=== PATIENT | male | born 2000 | race Caucasian/White ===

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

== ENCOUNTER → 2019-12-03 07:13 | Outpatient (CLI) | payer OTHER, SELFPAY ==
[2018-06-24 08:37] VITALS: BMI 25.8
--- NOTE | 2019-12-03 07:23 | MRI_ITS ---
STUDY: MRI LEFT MIDFOOT REASON FOR EXAM: Male, 19 years old. sesmoiditis, tendinitis left 1st metatarsal phal joint, swelling, nki TECHNIQUE: Standardized fat and water weighted pulse sequences were obtained in all 3 orthogonal planes. COMPARISON: No comparison available. 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 Small first metatarsophalangeal joint effusion. No acute fracture. No acute dislocation. No acute bone marrow placement. First digit partial-thickness plantar plate tear (sagittal image 23 series 7). Minimal first interphalangeal joint arthrosis (coronal image 11 series 5). Mild hallux valgus deformity. Normal tarsometatarsal joints. Normal second, third, fourth and fifth metatarsal phalangeal joints. No additional significant degenerative/congenital features of the second through fifth digits. Normal flexor tendons. Normal extensor tendons. No muscle atrophy/abnormality. Normal visualized components of the plantar fascia. Normal Lisfranc ligament. 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
== END ==
LOC: MRI 07:15
PROVIDERS: PCP Pediatrics; Referring Provider Podiatrist; Visit Provider Podiatrist
DX: M25.872 Other specified joint disorders, left ankle and foot (principal); M77.42 Metatarsalgia, left foot
CPT/HCPCS: 73718